=== PATIENT | female | born 1950 | race Caucasian/White ===

== ENCOUNTER 2023-05-26 06:20 | Day surgery (SDC) | payer MEDICARE, OTHER ==
[2023-05-25 13:34] VITALS: BMI 26.5
[~2023-05-26 06:20] MED LIST: EPINEPHrine 0.3 MG in Ophthalmic Irrigation Solution 500 ML IRR SCH
[2023-05-26] MEDS ORDERED: Cyclopentolate 1% Opth Drop 2 ML BOT ONE (07:10)
[2023-05-26] MEDS ORDERED: PHENYLephrine 2.5% Ophth Soln 15 ml Bottle ONE (07:10)
[2023-05-26] MEDS ORDERED: PROPOFOL 20 ML ONE (09:03)
[2023-05-26] MEDS ORDERED: fentaNYL 50 mcg/mL 1 mL Vial ONE (09:04)
[2023-05-26] MEDS ORDERED: Lidocaine 1% PF 5 ML VIAL ONE (10:01)
[2023-05-26] MEDS ORDERED: Lidocaine 4% PF 5 ML AMP ONE (10:01)
[2023-05-26] MEDS ORDERED: Triamcinolone 40 MG/ML VIAL ONE ×2 (10:01)
[2023-05-26] MEDS ORDERED: Bupivacaine 0.75% 10 ML VIAL ONE (10:01)
[2023-05-26] MEDS ORDERED: CEFAZOLIN 1 GM VIAL ONE (10:01)
[2023-05-26] MEDS ORDERED: Maxitrol 0.1% Opth Oint 3.5 GM TUBE ONE (10:01)
== END 2023-05-26 11:58 | disposition home or self-care (01) ==
LOC: EDSEX → SDC 06:20
PROVIDERS: ATTEND Ophthalmology Retina Specialist
PROC: 08943ZZ Drainage of Right Vitreous, Percutaneous Approach (ICD-10-PCS; principal; 2023-05-26)
DX: H40.51X4 Glaucoma secondary to other eye disorders, right eye, indeterminate stage (principal); H43.311 Vitreous membranes and strands, right eye; Z79.84 Long term (current) use of oral hypoglycemic drugs; Z79.899 Other long term (current) drug therapy
CPT/HCPCS: 67041; 82962; C1762; J3010; 36416; J0171; J0690; J2704; J3301; J3490; L8612